=== PATIENT | female | born 1965 | race Asian ===

== ENCOUNTER 2016-10-25 08:04 | Day surgery (SDC) | payer MEDICAID ==
[~2016-10-25] VITALS: Ht 149.9 cm; Wt 39.0 kg
[2016-10-25 08:59] VITALS: Ht 149.9 cm; Wt 39.0 kg
[2016-10-25] MEDS ORDERED: [UNRECOGNIZED DRUG - OTHER] (09:10)
[2016-10-25 09:18] VITALS: BP 111/76; PULSE 64; RESP 16
[2016-10-25] MEDS ORDERED: MIDAZOLAM 1 MG/ML 2 ML INJ ONE (10:20)
[2016-10-25] MEDS ORDERED: FENTAnyl 50 MCG/ML VIAL ONE (10:20)
[2016-10-25 10:45] VITALS: BP 105/68; PULSE 64; RESP 18
--- NOTE | 2016-10-25 15:35 | GILP ---
DATE OF PROCEDURE: 10/25/2016 NAME OF PROCEDURES: 1. Esophagogastroduodenoscopy and biopsy. 2. Colonoscopy. SURGEON: Jesus Salinas MD PREOPERATIVE DIAGNOSES: 1. Abdominal pain. 2. Chronic heartburn. 3. Screening colonoscopy. POSTOPERATIVE DIAGNOSES: 1. Hiatal hernia. 2. Gastroesophageal reflux disease. 3. Gastritis with erosions. 4. Gastric mucosal biopsies were taken for Helicobacter pylori test. 5. Colonoscopy all the way to the cecum. 6. Normal colonoscopic examination. 7. No colon neoplasm was identified. INDICATION FOR THE PROCEDURE: Ms. Nelida Barnett is a 51-year-old female patient who had upper abdomin al pain and chronic heartburn, not responding to therapy. She also needed a screening colonoscopy. The procedures and possible complications are well explained to the patient, she understood and cons ented to the procedure. DESCRIPTION OF PROCEDURE: Under the influence of fentanyl and Versed, the gastroscope was carefully introduced into the esophagus and under direct vision, it was advanced to the stomach and through t he pylorus into the duodenal bulb and descending duodenum. FINDINGS: ESOPHAGUS: The patient had hiatal hernia and gastroesophageal reflux disease. STOMACH: She also had gastritis with erosions. Gastric mucosal biopsies were taken for H. pylori test. DUODENUM: Normal. The colonoscope was carefully introduced in the rectum and under direct vision, it was advanced all the way to the cecum. FINDINGS: The patient had a normal colonoscopic examination. No colon neoplasm was identified. She tolerated the procedures very well and there was no complication from the procedures. At the en d of the procedures, she was awake with stable vital signs and she was discharged home to the care o f her family. IMPRESSION: Please see postoperative diagnoses. PLAN: 1. Dexilant 60 mg p.o. q.a.m. 2. Await H. pylori test report. 3. Next screening colonoscopy in 10 years. Dictated By: JESUS SALINAS MD GD/ELAINE Conf#: [id number] DID#: [id number] CC: JESUS SALINAS MD;*EndCC*
--- NOTE | 2016-10-26 08:07 | CONS ---
DATE OF ADMISSION: 10/25/2016 DATE OF CONSULTATION: TYPE OF CONSULTATION: Preoperative gastroenterology Dear Dr. Barnett: I thank you very much for this kind referral. HISTORY OF PRESENT ILLNESS: Ms. Nelida Barnett is a 51-year-old female patient who has been referred t o me for further evaluation of upper abdominal pain and chronic heartburn, not responding to therapy . There is no past history of peptic ulcer disease. She is not taking any nonsteroidal anti-inflam matory agents. Her appetite has been good, and she is not losing any weight loss. There is no hist ory of gallstones. She does not have any fever, chills or jaundice. There is no history of liver d isease. The patient denies any change in the bowel habit or rectal bleeding. The patient never had a screening colonoscopy. She is not a hypertensive or diabetic. She does not have any heart disea se or lung problem. There is no history of kidney disease. SOCIAL HISTORY: She is a nonsmoker. She does not abuse alcohol. FAMILY HISTORY: Negative for gastrointestinal tract neoplasm. ALLERGIES: THERE IS NO HISTORY OF SIGNIFICANT DRUG ALLERGY. MEDICATIONS: She takes medicine for the stomach, she does not remember the name. PHYSICAL EXAMINATION: VITAL SIGNS: She is 5 feet 2 inches tall and she weighs 90 pounds. HEART: Examination of the heart reveals normal first and second heart sounds. LUNGS: Clear. ABDOMEN: Soft without any distention. Liver and spleen are not palpable. There are no masses. Th ere is no focal tenderness. Normal bowel sounds are heard. CENTRAL NERVOUS SYSTEM: Does not reveal any focal neurological deficit. IMPRESSION: 1. Upper abdominal pain and chronic heartburn, not responding to therapy. 2. The patient is more than 50 years old and she needs screening colonoscopy. PLAN: Endoscopy and colonoscopy. The procedures and possible complications are well explained to the patient. She understands and co nsents to the procedures. I thank you once again. With warmest personal regards, Dictated By: JESUS SALINAS MD GD/NTS Conf#: [id number] DID#: [id number] CC: JESUS SALINAS MD;*EndCC*
== END 2016-10-25 11:15 | disposition home or self-care (01) ==
LOC: GIL 08:04
PROVIDERS: ATTEND Internal Medicine Gastroenterology
DX: Z12.11 Encounter for screening for malignant neoplasm of colon (principal); K44.9 Diaphragmatic hernia without obstruction or gangrene; B96.81 Helicobacter pylori [H. pylori] as the cause of diseases classified elsewhere; K21.9 Gastro-esophageal reflux disease without esophagitis; K29.60 Other gastritis without bleeding
CPT/HCPCS: 43239; 45378; 84703; 87081; J2250; J3010; Z7610